=== PATIENT | male | born 1995 | race Caucasian/White ===

== ENCOUNTER 2016-07-02 20:55 | Emergency (ER) | payer MEDICAID ==
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
[~2016-07-02 20:55] MED LIST: FLEXERIL PO; IBUPROFEN PO; VICODIN 5/1 TAB 5/50 PO; VICODIN 5/500 T1 TAB PO
[2016-07-02] MEDS ORDERED: NO MEDICATIONS (21:09)
== END 2016-07-02 23:10 | disposition home or self-care (01) ==
LOC: SED 20:55
DX: S60.221A Contusion of right hand, initial encounter (principal); F17.200 Nicotine dependence, unspecified, uncomplicated; Y04.0XXA Assault by unarmed brawl or fight, initial encounter; Y92.9 Unspecified place or not applicable
CPT/HCPCS: 29280; 73110; 73130; 99283